=== PATIENT | female | born 1990 | race American Indian/Alaskan Native ===

== ENCOUNTER 2019-05-02 09:28 | Inpatient (IN) | payer OTHER ==
--- NOTE | 2019-05-02 09:55 | Emergency Department Report ---
ED Lower Extremity HPI - General Chief Complaint: Extremity Injury, Lower Stated Complaint: SPRAINED ANKLE/BACK PAIN Time Seen by Provider: 05/02/19 09:49 Source: patient Mode of arrival: Wheelchair Limitations: No Limitations - History of Present Illness Initial Comments: Patient is 29 years old female with no significant past medical history. Patient presented to the ER complaining of right ankle pain after patient fell downstairs this morning. no other injuries. MD Complaint: ankle injury -: Sudden, This morning Injury: Ankle: Right Type of Injury: inversion Place: home Severity: moderate Severity scale (0 -10): 4 Improves With: immobilization Worsens With: weight bearing Context: fall Associated Symptoms: swelling, able to partially bear weight. denies: numbness, tingling, ambulatory - Related Data Allergies Allergy/AdvReac Type Severity Reaction Status Date / Time No Known Allergies Allergy Unverified 05/02/19 09:35 ED Review of Systems ROS: Stated complaint: SPRAINED ANKLE/BACK PAIN Other details as noted in HPI Comment: All other systems reviewed and negative Constitutional: denies: chills, fever Respiratory: denies: cough, shortness of breath, SOB with exertion Cardiovascular: denies: chest pain, palpitations Gastrointestinal: denies: abdominal pain, nausea, vomiting Musculoskeletal: denies: back pain ED Past Medical Hx - Past Medical History Previous Medical History?: No - Surgical History Past Surgical History?: No ED Physical Exam - General Limitations: No Limitations General appearance: alert, in no apparent distress - Head Head exam: Present: atraumatic, normocephalic, normal inspection - Eye Eye exam: Present: normal appearance, PERRL - ENT ENT exam: Present: normal exam, normal orophraynx, mucous membranes moist - Neck Neck exam: Present: normal inspection, full ROM. Absent: tenderness, meningismus, lymphadenopathy, thyromegaly - Respiratory Respiratory exam: Present: normal lung sounds bilaterally - Cardiovascular Cardiovascular Exam: Present: regular rate, normal rhythm, normal heart sounds - GI/Abdominal GI/Abdominal exam: Present: soft, normal bowel sounds. Absent: distended, tenderness, guarding, rebound, rigid, organomegaly, mass, bruit, pulsatile mass, hernia - Extremities Exam Extremities exam: Present: normal inspection, full ROM, normal capillary refill. Absent: pedal edema, calf tenderness - Back Exam Back exam: Present: normal inspection, full ROM. Absent: CVA tenderness (R), CVA tenderness (L), muscle spasm, paraspinal tenderness, vertebral tenderness - Neurological Exam Neurological exam: Present: alert, oriented X3, CN II-XII intact - Skin Skin exam: Present: warm, intact, normal color ED Lower Extremity MDM - Radiology Data Radiology results: report reviewed Referring Physician: AMEE FOSTER Patient Name: GAURAV ASH Date of : 1990 Sex: Female Report Date: 2019-05-02 Report Status: Finalized Findings [facility] [address] [place] [address] XRay Report Signed Patient: GAURAV ASH MR#: [id number] 34 : 1990 Acct:[id number] Age/Sex: 29 / F ADM Date: 05/02/19 Loc: ED Attending Dr: Ordering Physician: AMEE FOSTER Date of Service: 05/02/19 Procedure(s): XR ankle 3+V RT Accession Number(s): [id number] cc: AMEE FOSTER Fluoro Time In Minutes: RIGHT ANKLE 3 VIEWS INDICATION: right ankle injury. COMPARISON: No relevant prior imaging study available. FINDINGS: There is a transverse oblique fracture through the distal fibula at the level of the ankle mortise. There is also a transverse fracture at the medial malleolus. On the lateral view, there is subtle cortical irregularity along the posterior malleolus concerning for subtle fracture here. There is widening of the ankle mortise medially. Diffuse soft tissue swelling is noted. IMPRESSION: 1. Ankle fractures, as above. Signer Name: Macario Harper MD Signed: 05/02/2019 1:06 PM Workstation Name: [id number] Transcribed By: Dictated By: Macario Harper MD Electronically Authenticated By: Macario Harper MD Signed Date/Time: 05/02/191305 DD/ 05 TD/TT: - Medical Decision Making Patient is 29 years old female with no significant past medical history. Patient presented to the ER complaining of right ankle pain after patient fell downstairs this morning. no other injuries. X-ray showed a bi-mallular fracture with widening of the mortise to the medial side. Posterior leg splint applied. I discussed the patient with Dr. Santiago. He advised to admit the patient to the hospitalist for surgery tomorrow. I discussed the patient was Dr. Albert, he agreed to admit the patient to medical service. Critical care attestation.: If time is entered above; I have spent that time in minutes in the direct care of this critically ill patient, excluding procedure time. ED Disposition Clinical Impression: Ankle fracture, bimalleolar, closed Disposition: DC-09 OP ADMIT IP TO THIS HOSP Is pt being admited?: Yes Condition: Stable Instructions: Ankle Fracture (ED) Referrals: PRIMARY CAREMD [Primary Care Provider] - 3-5 Days ELOY SANTIAGO MD [Staff Physician] - 3-5 Days
[2019-05-02 11:19] LABS: HCG Qualitative,Urine Negative (Negative)
--- NOTE | 2019-05-02 13:11 | XRay Report ---
RIGHT ANKLE 3 VIEWS INDICATION: right ankle injury. COMPARISON: No relevant prior imaging study available. FINDINGS: There is a transverse oblique fracture through the distal fibula at the level of the ankle mortise. T here is also a transverse fracture at the medial malleolus. On the lateral view, there is subtle ayanna ical irregularity along the posterior malleolus concerning for subtle fracture here. There is widening of the ankle mortise medially. Diffuse soft tissue swelling is noted. IMPRESSION: 1. Ankle fractures, as above. Signer Name: Macario Harper MD Signed: 05/02/2019 1:06 PM Workstation Name: [id number]
[2019-05-02] MEDS ORDERED: ZOFRAN IV ONE (14:29)
[2019-05-02] MEDS ORDERED: MORPHINE IV ONE (14:29)
[2019-05-02] MEDS ORDERED: ZOFRAN ONE (14:40)
[2019-05-02] MEDS ORDERED: MORPHINE ONE (14:40)
[2019-05-02] MEDS: DILAUDID IV PRN (19:00)
[2019-05-02] MEDS ORDERED: PERCOCET 5/325 PO PRN (21:13)
[2019-05-02] MEDS ORDERED: TYLENOL PO PRN (21:13)
[2019-05-02] MEDS ORDERED: REGLAN IV PRN (21:13)
[2019-05-02] MEDS ORDERED: ZOFRAN IV PRN (21:13)
[2019-05-02] MEDS ORDERED: SODIUM CHLORIDE FLUSH SYRINGE 10 ML IV PRN (21:13)
--- NOTE | 2019-05-02 21:13 | Event Note ---
Date: 05/02/19 See history and physical in the reports R Ankle fracture
[2019-05-02] MEDS: PEPCID PO SCH (22:06)
[2019-05-02] MEDS: D5NS 1,000 ML IV SCH (22:07)
[2019-05-03] MEDS: SODIUM CHLORIDE FLUSH SYRINGE 10 ML IV SCH ×2 (01:02→12:11)
[2019-05-03 06:02] LABS: Alanine Aminotransferase 7 units/L (7-56); Albumin 3.6 g/dL (3.9-5); BUN/Creatinine Ratio 12; Blood Urea Nitrogen 6 mg/dL (7-17); Calcium 8.5 mg/dL (8.4-10.2); Hemolysis Index 5
[2019-05-03] MEDS: DILAUDID IV PRN ×3 (06:51→20:40)
--- NOTE | 2019-05-03 07:52 | History and Physical Report ---
CHIEF COMPLAINT: Right ankle pain for a couple of hours. HISTORY OF PRESENT ILLNESS: This is a 29-year-old female with no significant past medical history, fell about 10 flights of stairs and sustained severe right ankle pain. In the ER, the patient was found to have a right ankle fracture. Hence admission for surgery on the right ankle. Pain is about 10 on a scale of 1-10, sharp in nature. Any movement is exacerbating factor. PAST SURGICAL HISTORY: None. PAST SURGICAL HISTORY: None. FAMILY HISTORY: Hypertension. SOCIAL HISTORY: Does not smoke. No alcohol, no recreational drugs. REVIEW OF SYSTEMS: Significant for right ankle pain, which is 10 on a scale of 1-10. Otherwise, review of systems negative. PHYSICAL EXAMINATION: GENERAL: Young female, cooperative during examination, in pain. VITAL SIGNS: Temperature 98.5, pulse is 84, respirations 20, sats are 95%, blood pressure 134/75. HEENT: Unremarkable. Pupils equal and reactive. NECK: Supple, no lymphadenopathy, no thyromegaly. LUNGS: Clear to auscultation and percussion. Good air entry. CARDIOVASCULAR: S1, S2 heard. No gallop, no murmur, no rub. Apical impulse in left fifth intercostal space and midclavicular line. ABDOMEN: Soft and benign. No hepatosplenomegaly. No guarding, no rigidity. Hernial orifices are normal. EXTREMITIES: Right ankle swollen. Decreased range of motion. Right ankle deformed. Pulses well felt. CENTRAL NERVOUS SYSTEM: Alert and oriented x 4, nonfocal exam. LABORATORY DATA: CBC not available. Potassium is 3.5, slightly low, supplemented. Ankle x-ray shows transverse oblique fracture through the distal fibula at the level of the ankle mortise, also transverse fracture of the medial malleolus. Diffuse soft tissue swelling. Final impression was ankle fracture. ASSESSMENT AND PLAN: 1. Right ankle fracture with fracture of her tibia and medial malleolus. The patient to be taken to surgery for open reduction and internal fixation by Dr. Santiago. Pain control in the meantime. 2. Deep venous thrombosis prophylaxis, SCDs for the time being, Lovenox after the surgery. 3. Hypokalemia, supplemented. JOB# [id number] [facility]/GILMAR MCCALLUMD
[2019-05-03] MEDS ORDERED: KCL 10MEQ/100ML 10 MEQ/100 ML BAG IV SCH (08:30)
[2019-05-03 08:40] LABS: Hematocrit 32.9 % (30.3-42.9); Hemoglobin 10.4 gm/dl (10.1-14.3); Mean Corpuscular HGB Conc 32 % (30-34); Mean Corpuscular Volume 84 fl (79-97); Platelet Count 175 K/mm3 (140-440); Red Blood Count 3.94 M/mm3 (3.65-5.03); Red Cell Distribution Width 16.8 % (13.2-15.2)
--- NOTE | 2019-05-03 08:44 | XRay Report ---
CHEST 2 VIEWS INDICATION: pre-op. COMPARISON: None. FINDINGS: Support devices: None. Heart: Within normal limits. Pulmonary vasculature: Normal. Lungs/pleura: The lungs are normally expanded and clear. No pleural effusion. No pneumothorax. Additional findings: None. IMPRESSION: Normal chest Signer Name: Alejandro Lucero MD Signed: 05/03/2019 8:39 AM Workstation Name: [id number]
[2019-05-03 08:50] LABS: INR 1.08 (0.87-1.13)
[2019-05-03] MEDS: PEPCID PO SCH (10:00)
--- NOTE | 2019-05-03 10:51 | Consultation ---
History of Present Illness - [facility] Consult date: 05/03/19 Consult reason: fracture History of present illness: 29-year-old female who comes in complaining of right ankle pain and swelling after a fall down stairs at home patient states she is coming from coming down from upstairs. She accidentally slipped and twisted the ankle she was seen in our emergency department where x-rays revealed a displaced bimalleolar fracture Medications and Allergies Allergies Allergy/AdvReac Type Severity Reaction Status Date / Time No Known Allergies Allergy Unverified 05/02/19 09:35 Home Medications Medication Instructions Recorded Confirmed Last Taken Type No Known Home Medications [No 05/02/19 05/02/19 Unknown History Reported Home Medications] Active Meds: Active Medications Acetaminophen (Tylenol) 650 mg PO Q4H PRN PRN Reason: Pain MILD(1-3)/Fever >100.5/FLORES Famotidine (Pepcid) 20 mg PO BID [facility] Last Admin: 05/02/19 22:06 Dose: 20 mg Documented by: Hydromorphone HCl (Dilaudid) 1 mg IV Q3H PRN PRN Reason: Pain , Severe (7-10) Last Admin: 05/03/19 06:51 Dose: 1 mg Documented by: Dextrose/Sodium Chloride (D5ns) 1,000 mls @ 75 mls/hr IV DIRECT [facility] Last Admin: 05/02/19 22:07 Dose: 75 mls/hr Documented by: Metoclopramide HCl (Reglan) 10 mg IV Q6H PRN PRN Reason: Nausea And Vomiting Ondansetron HCl (Zofran) 4 mg IV Q3H PRN PRN Reason: Nausea And Vomiting Oxycodone/Acetaminophen (Percocet 5/325) 1 tab PO Q6H PRN PRN Reason: Pain, Moderate (4-6) Last Admin: 05/02/19 22:09 Dose: 1 tab Documented by: Sodium Chloride (Sodium Chloride Flush Syringe 10 Ml) 10 ml IV BID [facility] Last Admin: 05/03/19 01:02 Dose: 10 ml Documented by: Sodium Chloride (Sodium Chloride Flush Syringe 10 Ml) 10 ml IV PRN PRN PRN Reason: LINE FLUSH Physical Examination - Physical exam Eyes: PERRL ENT: Positive: clear oral mucosa Respiratory effort: normal Respiratory: bilateral: CTA Rhythm: regular Heart Sounds: Positive: S1 & S2 General gastrointestinal: Positive: soft, non-tender, non-distended, normal bowel sounds Integumentary: clear, warm, dry Neurologic: Positive: CNII-XII intact, moves all extremities, gait normal. Negative: focal deficits - Cervical Spine Neck pain: none Tenderness with palpation: none Full ROM: yes ROM: flexion: normal ROM: extension: normal ROM: rotation right: normal ROM: rotation left: normal ROM: lateral flexion right: normal ROM: lateral flexion left: normal - Lumbar Spine Back pain: none Tenderness with palpation: none Appearance: normal Full ROM: yes ROM: flexion: normal ROM: extension: normal ROM: rotation right: normal ROM: rotation left: normal ROM: lateral flexion right: normal ROM: lateral flexion left: normal Assessment and Plan Displaced right bimalleolar ankle fracture Recommendations -open reduction and internal fixation right ankle
--- NOTE | 2019-05-03 11:37 | Progress Note ---
Assessment and Plan Assessment and plan: Right ankle fracture Admitted to Surgical floor For surgery today Hypokalemia replace and recheck full code status. History Interval history: Patient fell had fracture right ankle. less pain right ankle Hospitalist Physical - Physical exam Narrative exam: Gen: Not in acute distress, lying in bed,obese HEENT: Normocephalic, atraumatic Neck: supple, no JVD Heart: S1 and S2 reg, no murmurs, rubs or gallop Lungs: Clear to auscultation, no rhonchi, no wheeze Abd: soft, non tender, non distended, normal BS, Ext: Right ankle in splint, no clubbing, no cyanosis Neuro: Awake, alert, oriented X 3, no focal neurological signs - Constitutional Vitals: Temp Pulse Resp BP Pulse Ox 97.9 F 73 18 121/63 98 05/03/19 07:23 05/03/19 07:23 05/03/19 07:23 05/03/19 07:23 05/03/19 07:23 Results - Labs CBC & Chem 7: 05/03/19 08:28 05/03/19 05:19 Labs: Laboratory Last Values WBC 4.8 K/mm3 (4.5-11.0) 05/03/19 08:28 RBC 3.94 M/mm3 (3.65-5.03) 05/03/19 08:28 Hgb 10.4 gm/dl (10.1-14.3) 05/03/19 08:28 Hct 32.9 % (30.3-42.9) 05/03/19 08:28 MCV 84 fl (79-97) 05/03/19 08:28 MCH 27 pg (28-32) L 05/03/19 08:28 MCHC 32 % (30-34) 05/03/19 08:28 RDW 16.8 % (13.2-15.2) H 05/03/19 08:28 Plt Count 175 K/mm3 (140-440) 05/03/19 08:28 PT 13.9 Sec. (12.2-14.9) 05/03/19 08:28 INR 1.08 (0.87-1.13) 05/03/19 08:28 Sodium 139 mmol/L (137-145) 05/03/19 05:19 Potassium 3.5 mmol/L (3.6-5.0) L 05/03/19 05:19 Chloride 103.6 mmol/L (98-107) 05/03/19 05:19 Carbon Dioxide 23 mmol/L (22-30) 05/03/19 05:19 Anion Gap 16 mmol/L 05/03/19 05:19 BUN 6 mg/dL (7-17) L 05/03/19 05:19 Creatinine 0.5 mg/dL (0.7-1.2) L 05/03/19 05:19 Estimated GFR > 60 ml/min 05/03/19 05:19 BUN/Creatinine Ratio 12 % 05/03/19 05:19 Glucose 99 mg/dL (65-100) 05/03/19 05:19 Calcium 8.5 mg/dL (8.4-10.2) 05/03/19 05:19 Total Bilirubin 0.30 mg/dL (0.1-1.2) 05/03/19 05:19 AST 13 units/L (5-40) 05/03/19 05:19 ALT 7 units/L (7-56) 05/03/19 05:19 Alkaline Phosphatase 49 units/L (35-129) 05/03/19 05:19 Total Protein 7.1 g/dL (6.3-8.2) 05/03/19 05:19 Albumin 3.6 g/dL (3.9-5) L 05/03/19 05:19 Albumin/Globulin Ratio 1.0 % 05/03/19 05:19 Urine HCG, Qual Negative (Negative) 05/02/19 Unknown Active Medications - Current Medications Current Medications: Generic Name Dose Route Start Last Admin Trade Name Freq PRN Reason Stop Dose Admin Acetaminophen 650 mg 05/02/19 21:13 Tylenol PO Q4H PRN Pain MILD(1-3)/Fever >100.5/FLORES Famotidine 20 mg 05/02/19 22:00 05/02/19 22:06 Pepcid PO 20 mg BID [facility] Administration Hydromorphone HCl 1 mg 05/02/19 18:32 05/03/19 06:51 Dilaudid IV 1 mg Q3H PRN Administration Pain , Severe (7-10) Dextrose/Sodium Chloride 1,000 mls @ 75 mls/hr 05/02/19 22:00 10/23/19 22:07 D5ns IV 75 mls/hr DIRECT [facility] Administration Metoclopramide HCl 10 mg 05/02/19 21:13 Reglan IV Q6H PRN Nausea And Vomiting Ondansetron HCl 4 mg 05/02/19 21:13 Zofran IV Q3H PRN Nausea And Vomiting Oxycodone/Acetaminophen 1 tab 05/02/19 21:13 05/02/19 22:09 Percocet 5/325 PO 1 tab Q6H PRN Administration Pain, Moderate (4-6) Sodium Chloride 10 ml 05/02/19 22:00 05/03/19 01:02 Sodium Chloride Flush Syringe 10 Ml IV 10 ml BID [facility] Administration Sodium Chloride 10 ml 05/02/19 21:13 Sodium Chloride Flush Syringe 10 Ml IV PRN PRN LINE FLUSH
[2019-05-03] MEDS: D5NS 1,000 ML IV SCH (12:07)
[2019-05-03] MEDS ORDERED: DIPRIVAN 10 MG/ML IV ONE ×2 (18:25→18:33)
[2019-05-03] MEDS ORDERED: XYLOCAINE MPF 2% ONE (18:25)
[2019-05-03] MEDS ORDERED: SUBLIMAZE ONE ×2 (18:25)
[2019-05-03] MEDS ORDERED: ANCEF/STERILE WATER 2 GM/20 ML 2 GM/20 ML SYRINGE IV ONE (18:52)
--- NOTE | 2019-05-03 19:07 | Anesthesia Day of Surgery ---
Anesthesia Day of Surgery - Day of Surgery Patient Examined: Yes Patient H&P Reviewed: Yes Patient is NPO: Yes
--- NOTE | 2019-05-03 19:07 | Anesthesia Consultation ---
Anesthesia Consult and Med Hx Date of service: 05/03/19 - Airway Anesthetic Teeth Evaluation: Good ROM Head & Neck: Adequate Mental/Hyoid Distance: Adequate Mallampati Class: Class III Intubation Access Assessment: Possibly Difficult - Pulmonary Exam CTA: Yes - Cardiac Exam Cardiac Exam: RRR - Pre-Operative Health Status ASA Pre-Surgery Classification: ASA2 Proposed Anesthetic Plan: General - Pulmonary Hx Smoking: No Hx Asthma: Yes (no inhaler use >1yr) - Cardiovascular System Hx Hypertension: No - Central Nervous System CVA: No - Gastrointestinal Hx Gastroesophageal Reflux Disease: No - Endocrine Hx Renal Disease: No Hx Liver Disease: No Hx Insulin Dependent Diabetes: No Hx Non-Insulin Dependent Diabetes: No Hx Thyroid Disease: No - Hematic Hx Anemia: No - Other Systems Hx Obesity: Yes
[2019-05-03] MEDS ORDERED: NACL 0.9% IR ONE (19:21)
[2019-05-03] MEDS ORDERED: DECADRON ONE (19:40)
[2019-05-03] MEDS ORDERED: ZOFRAN ONE (19:40)
[2019-05-03] MEDS ORDERED: DILAUDID ONE ×3 (19:41→20:33)
--- NOTE | 2019-05-03 20:14 | Procedure Note ---
Date of procedure: 05/03/19 Pre-op diagnosis: displace bimalleolar fracture right ankle Post-op diagnosis: same Procedure: Open reduction internal fixation right ankle fracture Procedure The patient was brought to the OR after having a femoral nerve block in preop holding. Postop pain management patient was placed on the OR table in supine position following induction and intubation the patient's right lower extremity was prepped and draped in the usual sterile manner. A timeout procedure was done to identify the patient and the correct operative site. The leg was then exsanguinated followed by inflation of the pneumatic tourniquet to 300 mmHg. A lateral incision was made over the distal fibula this is taken down sharply through skin and subcutaneous the fracture site was identified and using gentle manipulation the fracture fragments were reduced into a more anatomic position next a 6-hole one third semitubular plate was applied with screws of appropriate length and AP and lateral view was obtained and showed good reduction at the fracture and placement of the hardware. Next a curvlinear incision was made over the medial malleolus is then taken down sharply through skin and subcutaneous the fracture was identified and again using gentle manipulation I was held in place by way of a bone clamp next 2 small threaded K wires were used followed by placement of our 4.0 50 mm length cannulated screws again AP and lateral views were obtained showing good reduction medially. The wound was copiously irrigated the medial and lateral incisions were closed in a standard routine fashion postoperative dressings were applied as well as a well-padded posterior mold the patient tolerated the procedure there were no complications and she was sent to postanesthesia recovery in stable condition Anesthesia: MAC, regional Surgeon: ELOY NAIR Estimated blood loss: minimal Pathology: none Condition: stable Disposition: PACU
--- NOTE | 2019-05-03 20:23 | XRay Report ---
CLINICAL INDICATION: Open reduction internal fixation TECHNICAL DATA: 2 images submitted for interpretation. Fluoroscopy time was 0.3 minutes FINDINGS: Open reduction internal fixation of bimalleolar ankle fracture is noted. IMPRESSION: Open reduction internal fixation ankle fracture Signer Name: Sedrick Berry MD Signed: 05/03/2019 8:19 PM Workstation Name: [id number]
[2019-05-03 21:39] VITALS: BP 133/65
--- NOTE | 2019-05-04 09:03 | Discharge Summary ---
Providers - Providers Date of Admission: 05/02/19 14:09 Attending physician: PAM BURNHAM 05/02/19 Consult to Case Management [CONS] Routine Services Needed at Discharge: Home Health Services 05/02/19 14:05 Consult to Physician [CONS] Stat Comment: DR KRISTIN EUGENE W/DR NAIR @[id number] Consulting Provider: ELOY NAIR Physician Instructions: Reason For Exam: right ankle fracture with unstable mortise 05/03/19 10:58 Physical Therapy Evaluation and Treat [CONS] Routine Comment: Pt. will be discharged after surgery Reason For Exam: teach pt to use cructhes before surgery today Referring MD: ELOY NAIR Primary care physician: [employer] INSTRUCTOR Hospitalization Condition: Stable Disposition: DC-01 TO HOME OR SELFCARE Exam - Constitutional Vitals: Temp Pulse Resp BP Pulse Ox 98.0 F 74 16 133/65 94 05/03/19 21:38 05/03/19 21:38 05/03/19 21:38 05/03/19 21:38 05/03/19 21:38 Plan Follow up with: CHRISTIANA MARQUES MD [Primary Care Provider] - 3-5 Days ELOY NAIR MD [Staff Physician] - 3-5 Days Prescriptions: Oxycodone HCl/Acetaminophen [Percocet 7.5/325 mg] 1 each PO Q6HR PRN #20 tablet PRN Reason: Pain
== END 2019-05-03 22:30 | disposition home or self-care (01) | DRG 494 ==
LOC: ED 09:28 → 3B-SURG 14:09
PROVIDERS: ADMIT Internal Medicine; ATTEND Internal Medicine
PROC: 0QSJ04Z Reposition Right Fibula with Internal Fixation Device, Open Approach (ICD-10-PCS; principal; 2019-05-03)
PROC: 0QSG04Z Reposition Right Tibia with Internal Fixation Device, Open Approach (ICD-10-PCS; 2019-05-03)
PROC: 3E0T3BZ Introduction of Anesthetic Agent into Peripheral Nerves and Plexi, Percutaneous Approach (ICD-10-PCS; 2019-05-03)
DX: S82.841A Displaced bimalleolar fracture of right lower leg, initial encounter for closed fracture (principal); E87.6 Hypokalemia; E66.9 Obesity, unspecified; J45.909 Unspecified asthma, uncomplicated; W10.8XXA Fall (on) (from) other stairs and steps, initial encounter; Y93.89 Activity, other specified; Y92.098 Other place in other non-institutional residence as the place of occurrence of the external cause; Y99.8 Other external cause status; Z82.49 Family history of ischemic heart disease and other diseases of the circulatory system; Z68.31 Body mass index [BMI] 31.0-31.9, adult
CPT/HCPCS: 36415; 71045; 80053; 81025; 85027; 85610; 96374; 96375; G0378; C1713; J0690; J1100; J1170; J2270; J2405; J2704; J3010; J3480; J7042

== ENCOUNTER 2020-07-29 10:29 | Outpatient (CLI) | payer OTHER ==
--- NOTE | 2020-07-29 12:41 | XRay Report ---
RIGHT ANKLE 3 VIEWS INDICATION: DISPLACED BIMALLEOLAR FRACTURE OF RIGHT LOWER LEG. COMPARISON: 05/03/2019 IMPRESSION: The previously described bimalleolar fracture at the ankle has been internally fixated. Alignment is anatomic. Fracture lines have healed. No acute fracture. 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 The talar dome is intact. The soft tissues are unremarkable. Signer Name: Patrick Lutz Jr, MD Signed: 07/29/2020 12:36 PM Workstation Name: [id number]
== END 2020-07-29 10:30 | disposition home or self-care (01) ==
LOC: XRAY 10:29
PROVIDERS: ATTEND Orthopaedic Surgery
DX: S82.841A Displaced bimalleolar fracture of right lower leg, initial encounter for closed fracture (principal); M19.071 Primary osteoarthritis, right ankle and foot; X58.XXXA Exposure to other specified factors, initial encounter; Y93.89 Activity, other specified; Y92.89 Other specified places as the place of occurrence of the external cause; Y99.8 Other external cause status